=== PATIENT | male | born 1965 | race Caucasian/White ===

== ENCOUNTER 2024-04-16 21:08 | Emergency (ER) | payer MEDICARE, SELFPAY ==
--- NOTE | ~2024-04-16 | CT_ITS ---
EXAMINATION: CT brain wo con DATE: 04/16/2024 22:36 INDICATION: Fall with head injury TECHNIQUE: Computed tomography (CT) of the head was performed without intravenous contrast. Sagittal and coronal reconstructions were performed. The mA was adjusted according to patient size. Iterative reconstruction technique was employed. The dose-length product was 549.82 mGy-cm. COMPARISON: None FINDINGS: Tiny focus of soft tissue gas along the lateral rim of the right orbit consistent with reported histo ry of a head injury with laceration. No fracture. No acute intracranial hemorrhage, acute infarction or abnormal extra axial fluid collection. Ventricles are normal and symmetric. No mass/mass effect. M ild mucosal thickening the bilateral ethmoid sinuses and small mucous retention cyst in the posterior right maxillary sinus. The orbits and mastoid air cells are normal. IMPRESSION: 1. Normal brain. No fracture or acute intracranial process. Reviewed, dictated and finalized at location A.
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
--- NOTE | ~2024-04-16 | CT_ITS ---
EXAMINATION: CT cervical spine wo con DATE: 04/16/2024 22:36 INDICATION: Fall with head injury TECHNIQUE: Computed tomography (CT) of the cervical spine was performed without intravenous contrast. Automated exposure control and iterative reconstruction technique were employed. The dose-length pro duct was 549.82 mGy-cm. COMPARISON: None FINDINGS: C5-C7 anterior spinal fusion with interbody fusion devices and anterior plate-screw fixation. Alignme nt is normal. Moderate osteoarthritis at the atlantoaxial articulation. Unfused vertebral body height s are normal. No acute fracture. Disc heights are normal. There is multilevel mild uncovertebral oste oarthritis at the unfused levels. Severe facet osteoarthritis on the right at C2-C3. Mild to moderate facet osteoarthritis throughout the remainder of the cervical spine. Mild central canal stenosis res ulting from disc bulges at C3-C4 and C4-C5. Mild neural foraminal stenosis bilaterally at C6-C7 and m inimally at a few additional cervical levels. Cervical soft tissues are unremarkable. IMPRESSION: 1. Mild cervical spondylosis and instrumented C5-C7 anterior spinal fusion. No acute osseous abnormal ity. Reviewed, dictated and finalized at location A. IMPRESSION: 1. Mild cervical spondylosis and instrumented C5-C7 anterior spinal fusion. No acute osseous abnormality.
[2024-04-16 21:12] VITALS: BP 97/59; PULSE 82; RESP 14; TEMP 35.7; O2SAT 95
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
--- NOTE | 2024-04-16 21:27 | ECG_ITS ---
Test Date: 2024-04-16 21:58:20 Measurements Intervals Parrish Rate: 74 P: 149 MI: 150 QRS: 144 QRSD: 90 T: 0 QT: 393 QTc: 437 Interpretive Statements SINUS RHYTHM ARM LEADS REVERSED [INVERTED P AND QRS IN I] ATYPICAL ECG No previous ECG available for comparison Electronically Signed On 04-18-2024 10:43:08 CDT by Cortez Davis M.D.
[2024-04-16 21:45] VITALS: PULSE 69
[2024-04-16 21:47] LABS: Basophils Absolute Auto 0.1 K/mm3 (0.0-0.1); Basophils Percent Auto 0.5 % (0.2-1.2); Eosinophils Absolute Auto 0.1 K/mm3 (0-0.3); Eosinophils Percent Auto 0.8 % (0-4.4); Hematocrit 46.7 % (42.0-52.0); Hemoglobin 15.7 g/dL (14.0-18.0); Immature Granulocyte Percent A 0.7 % (0-0.5); Lymphocytes Absolute Auto 1.06 K/mm3 (0.9-3.2); Lymphocytes Percent Auto 7.4 % (18.3-44.2); Mean Corpuscular HGB Conc 33.6 g/dl (32-36); Mean Corpuscular Hemoglobin 33.1 pg (26-34); Mean Corpuscular Volume 98.5 fl (80-100); Mean Platelet Volume 11.3 fl (7.4-10.4); Monocytes Absolute Auto 0.6 K/mm3 (0.1-0.6); Monocytes Percent Auto 3.9 % (2.6-8.5); Neutrophils Absolute Auto 12.4 K/mm3 (1.3-6.7); Neutrophils Percent Auto 86.7 % (45.5-73.1); Platelet Count Result 237 k/mm3 (150-375); Red Blood Count 4.74 M/mm3 (4.6-6.20); Red Cell Distribution Width 12.4 % (11.5-14.5); White Blood Count 14.3 K/mm3 (4.5-10.0)
[2024-04-16 21:48] VITALS: BP 101/60; BP 87/62; PULSE 74; PULSE 79
[2024-04-16 21:51] VITALS: BP 80/52; PULSE 78
[2024-04-16 21:58] LABS: Ethanol < 10 mg/dL (<10)
[2024-04-16 21:59] LABS: Alanine Aminotransferase 34 U/L (6-50); Albumin Level 3.9 g/dL (3.5-5.1); Alkaline Phosphatase 124 U/L (38-126); Anion Gap 12 mmol/L (4-12); Aspartate Amino Transferase 37 U/L (17-59); Bilirubin,Total 0.6 mg/dL (0.2-1.3); Blood Urea Nitrogen 12 mg/dL (9-20); Calcium 8.7 mg/dL (8.4-10.2); Carbon Dioxide 24 mmol/L (22-30); Chloride 101 mmol/L (98-107); Estimated CRCL calculation 73 ml/min; Estimated Glomerular Filt Rate > 60; Glucose 122 mg/dL (65-110); Lipase 69 U/L (23-300); Magnesium 2.1 mg/dL (1.6-2.3); Sodium 137 mmol/L (137-145)
[2024-04-16] MEDS: LACTATED RINGERS 1,000 ML 999 ML IV CONT (22:02)
[2024-04-16] MEDS: SODIUM CHLORIDE 0.9% IV 1,000 ML 999 ML IV CONT (22:02)
[2024-04-16] MEDS: ACETAMINOPHEN 500 MG TABLET 1000 MG PO (22:02)
[2024-04-16] MEDS: TETANUS,DIPHTHERIA,AC PERTUSSIS ADULT (0.5 ML) BOOSTRIX IM (22:02)
[2024-04-16 22:04] LABS: INR 1.1; Prothrombin Time 15.2 Seconds (11.1-14.7)
[2024-04-16] MEDS: Please add drug allergy info to patient profile. 1 EACH XX (22:04)
[2024-04-16 22:10] LABS: Troponin I < 0.012 ng/mL (0.000-0.034)
[2024-04-16] MEDS: POTASSIUM CHLORIDE 20 MEQ PACKET (FOR LIQUID) 40 MEQ PO (22:42)
[2024-04-16 23:06] LABS: Lactic Acid Reflex 1.3 mmol/L (0.7-2.0)
[2024-04-16 23:28] VITALS: BP 126/76; PULSE 69; RESP 18; O2SAT 97
[2024-04-16 23:32] LABS: Add Urine Microscopic? NO; Appearance Urine Clear (Clear); Bilirubin Urine Negative (Negative); Blood Urine Negative (Negative); Color Urine Yellow (Yellow); Glucose Urine UA Negative (Negative); Ketones Urine Negative (Negative); Leukocyte Esterase Ur Negative LEU/UL (Negative); Nitrate Urine Negative (Negative); Protein Urine Negative (Negative); Specific Grav Ur 1.021 (1.001-1.035); pH Urine 6.5 (5.0-9.0)
[2024-04-16 23:47] LABS: Total Triiodothyronine (T3) 1.28 NG/ML (0.97-1.69)
[2024-04-16 23:47] LABS: Amphetamine Screen Urine Negative (Negative); Barbiturate Screen Urine Negative (Negative); Benzodiazepines Screen Urine Negative (Negative); Cannabinoid Screen Urine Positive (Negative); Cocaine Screen Urine Negative (Negative); Methadone Screen Urine Negative (Negative); Opiate Screen Urine Negative (Negative); Phencyclidine Screen Urine Negative (Negative)
--- NOTE | 2024-04-17 00:02 | PC.NURSE ---
Pt was given all instructions by Dr. Ulloa and made aware of his diagnosis. Pt left without discharge papers. 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
== END 2024-04-17 00:03 | disposition home or self-care (01) ==
PROVIDERS: Emergency Provider Student in an Organized Health Care Education/Training Program
DX: R55 Syncope and collapse (principal); R11.2 Nausea with vomiting, unspecified; S01.111A Laceration without foreign body of right eyelid and periocular area, initial encounter; S22.081A Stable burst fracture of T11-T12 vertebra, initial encounter for closed fracture; Z23 Encounter for immunization; E87.6 Hypokalemia; W18.11XA Fall from or off toilet without subsequent striking against object, initial encounter; V48.5XXA Car driver injured in noncollision transport accident in traffic accident, initial encounter; M47.812 Spondylosis without myelopathy or radiculopathy, cervical region; J43.9 Emphysema, unspecified; K44.9 Diaphragmatic hernia without obstruction or gangrene; N40.0 Benign prostatic hyperplasia without lower urinary tract symptoms; Z98.1 Arthrodesis status
CPT/HCPCS: 12011; 36415; 70450; 71275; 72125; 72128; 72131; 74174; 80053; 80307; 81003; 83605; 83690; 83735; 84439; 84443; 84480; 84484; 85025; 85610; 85730; 90471; 90715; 93005; 96360; 99284; A9270; J7030; J7120; Q9967